=== PATIENT | female | born 1975 | race Hispanic/Latino ===

== ENCOUNTER → 2024-04-16 | Day surgery (SDC) | payer OTHER ==
[~2024-04-16] MED LIST: DEXMEDETOMIDINE HCL 200 MCG/2 ML VIAL ONE; LIDOCAINE HCL 2% LOCAL INJ 5 ML SDV VIAL INJ ONE; MIDAZOLAM HCL 2 MG/2 ML VIAL ONE; PROPOFOL IV EMULSION 10 MG/ML 50 ML VIAL IV ONE
[2024-04-16] MEDS: LACTATED RINGER'S 1,000 ML ONE (12:43)
[2024-04-16 15:25] VITALS: BP 105/72; PULSE 64; RESP 15; TEMP 97.6; O2SAT 98
== END | disposition home or self-care (01) ==
LOC: OR 12:40
PROVIDERS: ATTEND Internal Medicine Gastroenterology
DX: K59.00 Constipation, unspecified (principal); K63.5 Polyp of colon; K64.8 Other hemorrhoids; E66.01 Morbid (severe) obesity due to excess calories
CPT/HCPCS: 45385; 81025; J2001; J2250; J2704; J7121; 45378